=== PATIENT | female | born 1960 | race Caucasian/White ===

== ENCOUNTER 2024-05-06 13:24 | Emergency (ER) | payer OTHER, SELFPAY ==
[2024-05-06 13:34] VITALS: BP 160/80; PULSE 86; O2SAT 99; BMI 27.1
== END 2024-05-06 16:55 | disposition left against medical advice (07) ==
PROVIDERS: Emergency Provider Emergency Medicine
DX: Z53.21 Procedure and treatment not carried out due to patient leaving prior to being seen by health care provider (principal)